=== PATIENT | male | born 1985 | race Caucasian/White ===

== ENCOUNTER 2017-12-23 11:27 | Emergency (ER) | payer OTHER ==
[2017-12-23] MEDS: Sodium Chloride 0.9% 1,000 ML IV ONE (12:51)
[2017-12-23] MEDS ORDERED: Sodium Chloride 0.9% 1,000 ML ONE (12:51)
[2017-12-23 12:52] LABS: BASO % 0.6 % (0.0-2.0); EOS % 0.6 % (0.0-4.0); HEMOGLOBIN 13.1 g/dL (12.0-18.0); LYMPH # 1.8 K/uL (1.0-4.3); LYMPH % 25.2 % (20.0-40.0); MEAN CELL VOLUME 92.9 fL (80.0-94.0); MEAN CORPUSCULAR HEMOGLOBIN 32.5 pg (27.0-31.0); MEAN PLATELET VOLUME 8.1 fL (7.2-11.7); MONO # 0.6 K/uL (0.0-0.8); MONO % 8.5 % (0.0-10.0); NEUT # 4.7 K/uL (1.8-7.0); NEUT % 65.1 % (50.0-75.0); RBC 4.02 Mil/uL (4.40-5.90); RED CELL DISTRIBUTION WIDTH 12.5 % (11.5-14.5); WHITE BLOOD COUNT 7.3 K/uL (4.8-10.8)
[2017-12-23 13:02] LABS: SQUAMOUS EPITHIAL < 1 /hpf (0-5); URINE BILIRUBIN NEGATIVE (NEGATIVE); URINE BLOOD NEGATIVE (NEGATIVE); URINE CLARITY Clear (Clear); URINE COLOR Yellow (YELLOW); URINE GLUCOSE (UA) NORMAL (Normal); URINE LEUKOCYTE ESTERASE NEG Leu/uL (Negative); URINE PROTEIN NEGATIVE (NEGATIVE); URINE UROBILINOGEN NORMAL mg/dL (0.2-1.0)
[2017-12-23 13:11] LABS: ALB/GLOB RATIO 1.8 (1.0-2.1); ALBUMIN 4.1 g/dL (3.5-5.0); ALT/SGPT 30 U/L (21-72); AST/SGOT 29 U/L (17-59); BLOOD UREA NITROGEN 13 mg/dL (9-20); CALCIUM 9.3 mg/dl (8.6-10.4); GFR AFRICAN-AMERICAN > 60; GFR NON-AFRICAN AMERICAN > 60; LIPASE 112 U/L (23-300)
--- NOTE | 2017-12-23 13:17 | RAD ---
Date of service: 12/23/2017 PROCEDURE: Radiographs of the chest and abdomen (obstructive series) HISTORY: abd pain COMPARISON: No prior. TECHNIQUE: AP radiograph of the chest, with upright and supine radiographs of the abdomen. FINDINGS: CHEST: Lungs: Clear. Cardiovascular: Normal size heart. No pulmonary vascular congestion. Pleura: No pleural fluid. No pneumothorax. Other findings: None. ABDOMEN AND PELVIS: Bowel: Mild to moderate retained stool. No bowel obstruction. No hepatic or splenic enlargement. No masses or abnormal intra-abdominal calcifications. Free air: None. Bones: Unremarkable. Other findings: None. IMPRESSION: Retained feces. No evidence of bowel obstruction.
--- NOTE | 2017-12-23 13:34 | C.PDOC ---
History Of Present Illness 32 y/o male presents to the ED complaining of crampy right-sided abdominal pain for 3 days. No associated nausea, vomiting, or diarrhea. Patient denies fevers, chills, radiation of pain, or urinary symptoms. Admits to being constipated frequently, states he eats cereal to prevent constipation. Time Seen by Provider: 12/23/17 12:21 Chief Complaint (Nursing): Male Genitourinary History Per: Patient History/Exam Limitations: no limitations Onset/Duration Of Symptoms: Days Current Symptoms Are (Timing): Still Present Quality Of Discomfort: Cramping Past Medical History Reviewed: Historical Data, Nursing Documentation, Vital Signs Vital Signs: Last Vital Signs Temp 98.1 F 12/23/17 14:02 Pulse 56 L 12/23/17 14:02 Resp 16 12/23/17 14:02 BP 100/55 L 12/23/17 14:02 Pulse Ox 98 12/23/17 14:02 - Medical History PMH: No Chronic Diseases Other Surgeries: Left hand surgery Family History: States: No Known Family Hx - Social History Hx Alcohol Use: No Hx Substance Use: No - Immunization History Hx Tetanus Toxoid Vaccination: No Hx Influenza Vaccination: No Hx Pneumococcal Vaccination: No Review Of Systems Except As Marked, All Systems Reviewed And Found Negative. Constitutional: Negative for: Fever, Chills, Sweats Cardiovascular: Negative for: Chest Pain Respiratory: Negative for: Shortness of Breath Gastrointestinal: Positive for: Abdominal Pain, Constipation. Negative for: Nausea, Vomiting, Diarrhea Genitourinary: Negative for: Dysuria, Frequency, Incontinence Musculoskeletal: Negative for: Back Pain Physical Exam - Physical Exam Appears: Non-toxic, No Acute Distress, Other (Thin male) Skin: Normal Color, Warm Head: Atraumatic, Normacephalic Eye(s): bilateral: Normal Inspection Oral Mucosa: Moist Neck: Normal ROM Chest: Symmetrical Cardiovascular: Rhythm Regular, No Murmur Respiratory: Normal Breath Sounds, No Accessory Muscle Use Gastrointestinal/Abdominal: Bowel Sounds (dull to percussion), Soft, Tenderness (mild tenderness to the right abdomen, (-) Benitez's sign, (-) McBurney's point tenderness), No Guarding, No Rebound Back: Normal Inspection Extremity: Bilateral: Atraumatic, Normal Color And Temperature, Normal ROM Neurological/Psych: Oriented x3, Normal Speech ED Course And Treatment - Laboratory Results Result Diagrams: 12/23/17 12:48 12/23/17 12:48 Lab Interpretation: Normal (ua neg.) O2 Sat by Pulse Oximetry: 97 (RA) Pulse Ox Interpretation: Normal - Radiology CXR: Interpreted by Me CXR Interpretation: Yes: No Acute Disease - Other Rad abd x 2 X-Ray: Interpreted by Me (+FOS) Reevaluation Time: 13:33 Reassessment Condition: Improved Medical Decision Making Medical Decision Making: constipation LOW susp of renal colic Disposition Doctor Will See Patient In The: Office Counseled Patient/Family Regarding: Studies Performed, Diagnosis - Disposition Referrals: [facility] [Outside] [facility] Disposition: HOME/ ROUTINE Disposition Time: 13:34 Condition: GOOD Additional Instructions: megha un purgante ahora para evacuarse adrian (Nataliya botella de [employer], entero) Repita el purgante wale necessario Cambios de dieta y ejercisio Come 7 verduras y frutas diarios. megha mas agua. Sigue en la [facility] wale necessario. Instructions: Constipation in Adults Forms: [facility] (Irish) Print Language: SWEDISH - Clinical Impression Clinical Impression: Colicky RLQ abdominal pain - Scribe Statement The provider has reviewed the documentation as recorded by the Scribe (Susan Lamb) Provider Attestation: All medical record entries made by the Scribe were at my direction and personally dictated by me. I have reviewed the chart and agree that the record accurately reflects my personal performance of the history, physical exam, medical decision making, and the department course for this patient. I have also personally directed, reviewed, and agree with the discharge instructions and disposition.
[2017-12-23 14:04] VITALS: BP 100/55; PULSE 56; RESP 16; TEMP 98.1
[2017-12-23 14:46] VITALS: O2SAT 97
== END 2017-12-23 14:04 | disposition home or self-care (01) ==
LOC: C.ER 11:27
DX: R10.84 Generalized abdominal pain (principal)
CPT/HCPCS: 74022; 80053; 81001; 83690; 85025; 96361; 96374; 99284; J1885; J7030